=== PATIENT | male | born 2000 | race Caucasian/White ===

== ENCOUNTER 2024-04-26 14:08 | Emergency (ER) | payer MEDICAID ==
[~2024-04-26] VITALS: Ht 190.5 cm; Wt 86.3 kg
[2024-04-26] MEDS ORDERED: COROS RIGHTEYE (15:38)
[2024-04-26 15:45] VITALS: BP 132/78; PULSE 68; RESP 18; TEMP 98.1; O2SAT 99
== END 2024-04-26 15:47 | disposition home or self-care (01) ==
LOC: ER 14:09
DX: H10.89 Other conjunctivitis (principal); Z79.2 Long term (current) use of antibiotics
CPT/HCPCS: 99283